=== PATIENT | male | born 1980 | race Caucasian/White ===

== ENCOUNTER 2024-03-16 14:39 | Emergency (ER) | payer SELFPAY ==
[2024-03-16 14:46] VITALS: BP 148/80; PULSE 66; RESP 18; TEMP 98.7; BMI 25.0
[2024-03-16] MEDS ORDERED: TETRACAINE 0.5% OPHTH SOLN 2 ML BOTTLE ONE (15:05)
[2024-03-16] MEDS ORDERED: FLUORESCEIN NA 1 EA STRIP ONE (15:09)
[2024-03-16] MEDS: FLUORESCEIN NA 1 EA STRIP OU ONE (15:20)
[2024-03-16] MEDS: TETRACAINE 0.5% OPHTH SOLN 2 ML BOTTLE OU ONE (15:20)
== END 2024-03-16 16:09 | disposition home or self-care (01) ==
LOC: JERFT 14:39
DX: H01.001 Unspecified blepharitis right upper eyelid (principal)
CPT/HCPCS: 99283-25